=== PATIENT | male | born 1990 | race African-American/Black ===

== ENCOUNTER 2021-07-09 15:31 | Emergency (ER) | payer OTHER, SELFPAY ==
[~2021-07-09] VITALS: Ht 177.8 cm; Wt 72.6 kg
[2021-07-09 16:17] VITALS: BP_SYST 127
--- NOTE | 2021-07-09 16:24 | NUR ---
pt. came in with girlfriend concerned about pain to left groin area, rates it 6/10, but over past 4 days at times pain has been 10/10 bringing him to tears, had prior surgery with mesh placement and pt. feels pain very similar and in same area as before
--- NOTE | 2021-07-09 16:54 | NUR ---
ER in triage examining patient.
[2021-07-09 18:30] LABS: BASOPHILS # (AUTO) 0.1 K/uL (0.0-0.2); BASOPHILS % (AUTO) 1.1 % (0.0-2.0); EOSINOPHILS # (AUTO) 0.1 K/uL (0.0-0.4); EOSINOPHILS % (AUTO) 2.4 % (0.0-4.0); HEMATOCRIT 46.7 % (36-54); HEMOGLOBIN 15.5 g/dL (14.0-18.0); LYMPHOCYTES # (AUTO) 1.2 K/uL (1.0-5.5); LYMPHOCYTES % (AUTO) 24.4 % (20.5-51.5); MEAN CORPUSCULAR HEMOGLOBIN 30 pg (27-31); MEAN CORPUSCULAR HGB CONC 33 % (32-36); MEAN CORPUSCULAR VOLUME 89 fL (79.0-98.0); MONOCYTES # (AUTO) 0.5 K/uL (0.0-1.0); MONOCYTES % (AUTO) 9.3 % (1.7-9.3); NEUTROPHILS # (AUTO) 3.1 K/uL (1.8-7.7); NEUTROPHILS % (AUTO) 62.8 % (40.0-70.0); PLATELET COUNT (AUTO) 153 K/uL (130-430); RED BLOOD CELL COUNT(AUTO) 5.23 MIL/uL (4.2-6.2); RED CELL DISTRIBUTION WIDTH 13.2 % (9.0-15.0)
[2021-07-09 18:49] LABS: CALCIUM 9.4 mg/dL (8.4-11.0); CREATININE 1.01 mg/dL (0.55-1.30); POTASSIUM 3.5 mmol/L (3.5-5.1)
[2021-07-09 18:54] LABS: ALBUMIN 4.4 g/dL (3.4-4.8); TOTAL BILIRUBIN 1.2 mg/dL (0.0-1.0)
[2021-07-09 20:13] LABS: BILIRUBIN,URINE 1+ (NEGATIVE); BLOOD, URINE NEGATIVE (NEGATIVE); CLARITY/URINE CLEAR (CLEAR); COLOR,URINE YELLOW (YELLOW); GLUCOSE,URINE NEGATIVE (NEGATIVE); KETONES,URINE 1+ (NEGATIVE); LEUKOCYTE ESTERASE ,URINE NEGATIVE (NEGATIVE); NITRITE, URINE NEGATIVE (NEGATIVE); PROTEIN URINE 1+ (NEGATIVE); UROBILINOGEN,URINE 0.2 (0.2-1.0)
[2021-07-09 20:38] LABS: BACTERIA,URINE None Seen /HPF (None Seen); RBC,URINE 0-3 /HPF (0-3); WBC,URINE 0-3 /HPF (0-3)
[2021-07-09 20:39] LABS: MUCUS,URINE 3+ /LPF (None Seen)
[2021-07-09] MEDS ORDERED: NAPR-690 PO (21:14)
--- NOTE | 2021-07-09 21:29 | NUR ---
Patient given written and verbal discharge instructions and verbalizes understanding. ER Dr. Moser discussed with patient the results and treatment provided. Patient in stable condition. ID arm band removed. Rx of Naproxen given. Patient educated on pain management and to follow up with PMD. Pain Scale 4. Opportunity for questions provided and answered. Medication side effect fact sheet provided.
[2021-07-09 21:30] VITALS: BP_SYST 120
[2021-07-11 22:06] LABS: CHLAMYDIA TRACHOMATIS NAA Negative (Negative); NEISSERIA GONORRHOEAE NAA Negative (Negative)
== END 2021-07-09 21:30 | disposition home or self-care (01) ==
LOC: SED 15:31
DX: R10.2 Pelvic and perineal pain (principal)
CPT/HCPCS: 36415; 76870-TC; 80053; 81000; 85025; 87491; 87591; 99284